=== PATIENT | male | born 1950 | race Caucasian/White ===

== ENCOUNTER 2016-08-01 15:18 | Observation (INO) | payer OTHER ==
[~2016-08-01] VITALS: Ht 195.6 cm; Wt 96.2 kg
[~2016-08-01 15:18] MED LIST: COUMADIN10 M1 PO; COUMADIN6 M1 PO; MULTI-DAY VITA1 EACH PO; VITAMIN B-12500 MC2 PO; VITAMIN D31000 UNI2 PO
[2016-08-01 16:08] LABS: ABSOLUTE BASOPHIL COUNT 0 /CUMM (0.0-0.2); ABSOLUTE EOSINOPHIL COUNT 0 /CUMM (0.0-0.7); ABSOLUTE GRANULOCYTE CT 6.9 /CUMM (1.4-6.5); ABSOLUTE LYMPH COUNT 2.2 /CUMM (1.2-3.4); ABSOLUTE MONOCYTE COUNT 0.7 /CUMM (0.10-0.60); BASOPHIL % 0.5 % (0.0-2.0); EOSINOPHIL % 0.3 % (0-5); GRANULOCYTE % 70.2 % (42.2-75.2); HEMATOCRIT 37.8 % (42-52); MEAN CORPUSCULAR HGB 29.9 PG (27.0-31.0); MEAN CORPUSCULAR HGB CONC 32.7 G/DL (33.0-37.0); MEAN CORPUSCULAR VOLUME 91.4 FL (80.0-94.0); MEAN PLATELET VOLUME 8.8 FL (7.4-10.4); PLATELET COUNT 255 /CUMM (130-400); RBC DISTRIBUTION WIDTH 15.1 % (11.5-14.5); RED BLOOD CELL CT 4.14 /CUMM (4.70-6.10); WHITE BLOOD CELL COUNT 9.8 /CUMM (4.8-10.8)
--- NOTE | 2016-08-01 16:09 | NUR ---
RECEIVED 65 YO MALE C/O MID ABDOMINAL AREA PAIN RADIATING TO BOTH SIDES, STARTED 8 AM TODAY. NO NAUSEA/VOMITING. SMALL BOWEL MOVEMENT NOTED THIS AM. PT WAS HERE 04/04 FOR SAME.
--- NOTE | 2016-08-01 16:09 | NUR ---
PT HAD BARIATRIC SURGURY 2013. LOST 200 LBS SINCE.
--- NOTE | 2016-08-01 16:27 | NUR ---
PT AMBULATORY TO ROOM 17, CHANGING INTO HOSPITAL GOWN. PT REPORTS PAIN BEGAN THIS MORNING "JUST LIKE LAST TIME," HAD SM LOOSE BM WITH TEMPORARY RELIEF, THEN PAIN CAME BACK. DENIES N/V, NO BLOOD IN STOOL. NO OTHER SYMPTOMS, "JUST PAIN." REPORTS EXACTLY THE SAME SYMPTOMS PRIOR HOSPITAL ADMISSION A FEW MONTHS AGO (PT REPORTS ADMITTED WITH ?INTERNAL HERNIA S/P BARIATRIC SURGERY, STATES RESOLVED "ON IT'S OWN, THEY JUST KEPT ME FROM EATING AND GAVE ME PAIN MEDS" DENIES ANY SURGICAL INTERVENTION.) ARSENIO VILLAGRAN AT BEDSIDE FOR EVAL
[2016-08-01] MEDS ORDERED: COUMADIN5 M2 PO (16:31)
[2016-08-01] MEDS ORDERED: COUMADIN10 M1 PO (16:32)
--- NOTE | 2016-08-01 16:40 | ED GI/GU/ABDOMINAL COMPLAINT ---
History of Present Illness General Chief Complaint: Abdominal Pain/Flank Pain Stated Complaint: ABD PAIN Source: patient, old records Exam Limitations: no limitations Vital Signs & Intake/Output Vital Signs & Intake/Output Vital Signs Date Time Temp Pulse Resp B/P Pulse O2 O2 Flow FiO2 Ox Delivery Rate 08/02 2043 Room Air 08/01 2017 97.4 68 20 140/79 98 Room Air 08/01 1821 98.0 59 18 140/97 100 Room Air 08/01 1632 99 08/01 1627 82 20 156/80 99 Room Air 08/01 1611 97.4 64 18 176/100 98 Room Air ED Intake and Output 08/02 0000 08/01 1200 Intake Total 1000 Output Total 200 Balance 800 Intake, IV 1000 Output, Urine 200 Patient 212 lb Weight Allergies Coded Allergies: NO KNOWN ALLERGIES (03/18/16) Reconcile Medications Cyanocobalamin (Vitamin B-12) (Vitamin B-12) (Unknown Strength) TABLET 1 TAB PO DAILY SUPPLEMENT (Reported) Multivitamin (Multi-Day Vitamins) 1 EACH TABLET 1 TAB PO DAILY SUPPLEMENT ( Reported) Warfarin Sodium (Coumadin) 5 MG TABLET 1 TAB PO QSUN BLOOD THINNER (Reported) Warfarin Sodium (Coumadin) 10 MG TABLET 1 TAB PO AD BLOOD THINNER (Reported) Triage Note: RECEIVED 65 YO MALE C/O MID ABDOMINAL AREA PAIN RADIATING TO BOTH SIDES, STARTED 8 AM TODAY. NO NAUSEA/VOMITING. SMALL BOWEL MOVEMENT NOTED THIS AM. PT WAS HERE 04/04 FOR SAME. Triage Nurses Notes Reviewed? yes HPI: PATIENT IS A 65-YEAR-OLD MALE PRESENTS COMPLAINING OF DIFFUSE ABDOMINAL PAIN. pAIN ONSET THIS MORNING. Pain sudden onset while patient was at rest. Pain is a sharp pain currently severe. Patient reports he had a small bowel movement this morning which provided moderate temporary improvement then the pain returned. Intermittent associated diaphoresis. Patient denies fevers, chills, vomiting, diarrhea. (TYSHAWN CESAR,BRIAN) Past History Travel History Traveled to [place] past 21 day No Medical History Any Pertinent Medical History? see below for history Neurological: NONE EENT: NONE Cardiovascular: NONE Respiratory: NONE Gastrointestinal: NONE Hepatic: cholelithiasis Renal: NONE Musculoskeletal: disk herniation Psychiatric: NONE Endocrine: NONE Blood Disorders: DVT Cancer(s): NONE HISTOLOGIC AIDE/Reproductive: NONE History of MRSA: No History of VRE: No History of CDIFF: No Pneumonia Vaccine: 04/20/15 Influenza Vaccine: 12/20/15 Surgical History Surgical History: cholecystectomy, gastric bypass Psychosocial History What is your primary language Divehi Tobacco Use: Current Daily Use Daily Tobacco Use Amount/Type: => 5 Cigarettes daily Family History Hx Contributory? No (BRIAN DUARTE) Review of Systems Review of Systems Constitutional: Reports: diaphoresis. Denies: chills, fever. EENTM: Reports: no symptoms. Respiratory: Denies: cough, short of breath. Cardiovascular: Denies: chest pain. GI: Reports: see HPI. Genitourinary: Denies: dysuria, frequency, hematuria. Musculoskeletal: Reports: no symptoms. Skin: Reports: no symptoms. Neurological/Psychological: Reports: no symptoms. Hematologic/Endocrine: Reports: no symptoms. Immunologic/Allergic: Reports: no symptoms. (BRIAN DUARTE) Physical Exam Physical Exam General Appearance: alert, awake Head: atraumatic, normal appearance Eyes: Bilateral: normal appearance, PERRL, EOMI. Ears, Nose, Throat, Mouth: hearing grossly normal, moist mucous membrane Neck: normal inspection, supple, full range of motion Respiratory: normal breath sounds, chest non-tender, no respiratory distress, lungs clear Cardiovascular: regular rate/rhythm (NO APPRECIABLE MURMUR) Peripheral Pulses: 2+ dorsalis pedis (R), 2+ dorsalis pedis (L) Gastrointestinal: normal bowel sounds, soft, DIFFUSE TENDERNESS WITH MILD GUARDING Back: normal inspection, normal range of motion Extremities: normal range of motion, TRACE BILATERAL LOWER EXTREMITY EDEMA Neurologic/Psych: no motor/sensory deficits, awake, alert, oriented x 3, normal gait, normal mood/affect Skin: warm/dry Core Measures ACS in differential dx? No Severe Sepsis Present: No Septic Shock Present: No (RBIAN DUARTE) Progress Differential Diagnosis: sbo, internal hernia, mesenteric ischemia, bowel perforation Plan of Care: Orders Procedure Date/time Status Clear Liquid Diet 08/02 B Active PROTHROMBIN TIME 08/02 0600 Active MAGNESIUM 08/02 0600 Active CBC WITHOUT DIFFERENTIAL 08/02 0600 Active BASIC ELECTROLYTES PLUS BUN&CR 08/02 0600 Active Patient Data 08/02 0005 Active PROTHROMBIN TIME 08/02 0005 Active Code Status 08/02 0005 Active Vital Signs 08/02 UNK Active Intake & Output 08/02 UNK Active BLOOD PRODUCT PICKUP 08/01 2310 Active FRESH FROZEN PLASMA 08/02 2147 Active BLOOD PRODUCT PICKUP 08/01 2146 Active BLOOD PRODUCT PICKUP 08/01 2124 Active BLOOD PRODUCT PICKUP 08/01 2114 Active FingerStick- Glucose 08/[address] in observation 08/01 2032 Active BLOOD PRODUCT PICKUP 08/02 2019 Active FRESH FROZEN PLASMA 08/01 2017 Active LACTIC ACID 08/01 1938 Complete PROTHROMBIN TIME 08/01 1643 Complete URINALYSIS 08/01 1638 Complete LACTIC ACID 08/01 1638 Complete LIPASE 08/01 152 Complete COMPREHENSIVE METABOLIC PANEL 08/01 152 Complete CBC WITHOUT DIFFERENTIAL 08/01 152 Complete AMYLASE 08/01 1522 Complete TYPE & SCREEN (NOT X-MATCH) 08/01 152 Complete EKG 08/01 1519 Active Laboratory Tests 08/02/16 0027: PT Pending, INR Pending 08/01/162019: Lactic Acid 0.7 08/01/16 1837: Urine Color YEL, Urine Clarity CLEAR, Urine pH 5.5, Ur Specific [place] >= 1.030 , Urine Protein TRACE H, Urine Ketones TRACE H, Urine Nitrite NEG, Urine Bilirubin NEG, Urine Urobilinogen 0.2, Ur Leukocyte Esterase NEG, Ur Microscopic SEDIMENT EXAMINED, Urine WBC RARE, Urine Crystals 1+ CA OX H, Urine Bacteria FEW H, Hyaline Casts 3-5 H, Urine Mucus FEW, Urine Hemoglobin NEG, Urine Glucose NEG 08/01/16 1638: Lactic Acid 0.8, PT 25.1 H, INR 2.41 H 08/01/16 1535: Anion Gap 12, Estimated GFR > 60, BUN/Creatinine Ratio 16.7, Glucose 190 H, Calcium 9.1, Total Bilirubin 0.6, AST 28, ALT 43, Alkaline Phosphatase 78, Total Protein 6.6, Albumin 3.8, Globulin 2.8, Albumin/Globulin Ratio 1.4, Amylase 47, Lipase 102, CBC w Diff NO MAN DIFF REQ, RBC 4.14 L, MCV 91.4, MCH 29.9, RDW 15.1 H, MPV 8.8, Gran % 70.2, Lymphocytes % 22.3, Monocytes % 6.7, Eosinophils % 0.3, Basophils % 0.5, Absolute Granulocytes 6.9 H, Absolute Lymphocytes 2.2, Absolute Monocytes 0.7 H, Absolute Eosinophils 0, Absolute Basophils 0, PUBS MCHC 32.7 L 08/01/2016 6:24:20 PM: Pain improved from 10/10 to 6-7/10. Results of labs discussed with patient. Awaiting CT scan. Discussed with Dr. Villegas 08/01/2016 8:02:22 PM: Discussed with Dr. Beckman surgical PA evaluating patient at this time. 08/01/2016 8:20:15 PM: Plan for Dr. Beckman to take patient to the OR, surgical PA ordered FFP and vitamin K (TYSHAWN CESAR,BRIAN) Diagnostic Imaging: Viewed by Me: CT Scan. Discussed w/RAD: CT Scan. Radiology Impression: PATIENT: BRIAN MCGOWAN PRESENT AGE: 65 PATIENT ACCOUNT NO: [id number] : 50 LOCATION: [facility] ORDERING PHYSICIAN: BRIAN CESAR SERVICE DATE: 08/01/16626 EXAM TYPE: CAT - CT ABD & PELVIS W ORAL & IV CO EXAMINATION: CT ABDOMEN AND PELVIS WITH CONTRAST CLINICAL INFORMATION: Diffuse abdominal pain. History of gastric bypass. Evaluate for obstruction. COMPARISON: CT abdomen and pelvis 03/18/2016. TECHNIQUE: Multidetector volumetric imaging was performed of the abdomen and pelvis before and after the IV administration of 94 mL of Optiray 320 intravenous contrast. Sagittal and coronal reformatted images were obtained on the technologist's workstation. DLP: 544 mGy-cm FINDINGS: Limited evaluation of the solid abdominal viscera secondary to phase of contrast imaging. Specifically , there is limited evaluation of the liver parenchyma. LUNG BASES: The visualized lung bases are unremarkable. LIVER, GALLBLADDER, AND BILIARY TREE: The liver is normal in size, shape, and attenuation. As noted above, there is limited evaluation of the liver parenchyma, secondary to phase of contrast imaging. No contour deforming liver lesions are identified. The gallbladder is surgically absent and there is mild intrahepatic and extrahepatic biliary ductal dilatation. There are no visible radiopaque intraductal stones. PANCREAS: Unremarkable. SPLEEN: Unremarkable. ADRENAL GLANDS: Unremarkable. KIDNEYS AND URETERS: The bilateral kidneys are normal in size and enhance symmetrically, without solid parenchymal lesions. Redemonstrated are several fluid attenuating lesions within the upper and mid poles of the bilateral kidneys, favored corresponds to simple renal cortical cysts. No renal or ureteral stones are identified and there is no hydroureteronephrosis of either kidney or renal collecting system. BLADDER: The urinary bladder is decompressed. GASTROINTESTINAL TRACT: Evaluation of the gastrointestinal system is again notable for postsurgical changes related to prior Radha-en-Y gastric bypass surgery. The gastrojejunal and jejunojejunal anastomoses appear to be grossly patent. Of note, there is limited evaluation of the gastrointestinal system as well as the mesentery secondary to phase of contrast imaging. The imaged abdominal and pelvic bowel loops appear to be normal in caliber, without findings indicative of small bowel obstruction or ileus. There is questionable circumferential thickening of the imaged loops of small and large bowel, which is entirely nonspecific and may be secondary to mucosal edema given diffuse mesenteric edema. There is persistent diffuse mesenteric edema, which may be secondary to underlying obstruction of the superior mesenteric artery. Specifically, there is complete occlusion of the mid segment of the superior mesenteric artery, approximately 5.5 cm from its origin. In this region of occlusion, there is focal twisting of the mesentery within this region and absent flow within the vessel spanning approximately 1.2 cm (series 602, image 44). Flow within the vessel appears to be reconstituted distally by proximal branches of the superior mesenteric artery. Given the patient's history of prior abdominal surgery, cannot exclude a focal intra-abdominal adhesion or internal hernia as a cause of occlusion of the superior mesenteric artery. Alternatively, occlusion of the superior mesenteric artery may be secondary to underlying intraluminal thrombus. As noted above, there is extensive mesenteric edema, which as noted above may be secondary to obstruction of the superior mesenteric artery. There appears to be some venous outflow from the mesentery. However, evaluation of the abdominal venous structures is significantly limited secondary to phase of contrast imaging. ABDOMINAL WALL: Small fluid and fat-containing umbilical hernia. LYMPH NODES: Limited evaluation for mesenteric and retroperitoneal adenopathy given extensive mesenteric edema. No significant deep pelvic or inguinal adenopathy. VASCULAR: As noted above, there is complete occlusion of the mid segment of the superior mesenteric artery, approximately 5.5 cm from its origin. There is associated twisting of the mesentery within this region of occlusion. Absent flow within the superior mesenteric artery spans approximately 1.2 cm. There is apparent reconstitution of flow distally from proximal branches of the superior mesenteric artery. There is limited evaluation of the abdominal venous structures given phase of contrast imaging. Contrast is identified within the IVC as well as within the bilateral renal veins. An infrarenal IVC filter is identified. There is limited evaluation for flow within the main portal vein, the right and left portal veins, the splenic vein as well as SMV, given exam limitations. The remaining imaged vessels of the abdominal aorta appear to be grossly patent and opacified by intravenous contrast. PELVIC VISCERA: The prostate gland is enlarged and is visualized measuring approximately 4.2 x 5.6 cm in AP and transverse dimensions respectively. OSSEOUS STRUCTURES: No acute osseous abnormality. Moderate multilevel degenerative changes of the imaged thoracolumbar spine without visible acute vertebral compression deformity or subluxation. IMPRESSION: 1. Diffuse mesenteric edema, not significantly changed relative to the prior examination. Mesenteric edema may be secondary to underlying occlusion of the superior mesenteric artery. Specifically, there is complete occlusion of the mid segment of the superior mesenteric artery, approximately 5.5 cm from its origin. This segment of occlusion spans approximately 1.2 cm within the central abdomen. Flow within the vessel appears to be reconstituted distally by proximal branches of the superior mesenteric artery. In the region of occlusion, there is focal twisting of the mesentery. This may account for occlusion of the vessel although intraluminal thrombus cannot be entirely excluded. Given the patient's history of prior abdominal surgery an internal hernia or intra-abdominal adhesion should also be considered. Recommend surgical consultation. Also recommend correlation with CTA of the abdomen with 3-D reconstruction. 2. Postsurgical changes related to prior Radha-en-Y gastric bypass procedure. Normal caliber of abdominal and pelvic bowel loops, without findings indicative of small bowel obstruction or ileus. Given the aforementioned findings and the patient's presenting clinical symptoms consideration should be given to chronic underlying mesenteric ischemia. No bowel wall pneumatosis or portal venous air is identified and there are no extraluminal foci of air to suggest perforation. 3. Limited evaluation of the abdominal venous structures secondary to phase of contrast imaging. This critical result was discussed with Dr. Brian patten at 7:35 PM on and it was ascertained that the content and urgency of the report was understood at the time of direct communication. DICTATED BY: SIVA MERCEDES MD DATE/TIME DICTATED:08/01/161926 DOOR PULLER:SONDRA DATE/TIME TRANSCRIBED:08/01/161926 CONFIDENTIAL, DO NOT COPY WITHOUT APPROPRIATE AUTHORIZATION. <Electronically signed in Other Vendor System> SIGNED BY: SIVA MERCEDES MD 08/01/162000 Initial ED EKG: sinus rhythm and rate controlled with PVCs present, nonspecific intraventricular conduction delay similar to previous EKG, no acute ST/T-wave abnormalities compared to previous EKG Prior EKG: unchanged (BRIAN DUARTE) Departure Departure Time of Disposition: 2109 Disposition: STILL A PATIENT Condition: Guarded Clinical Impression Primary Impression: Occlusion of superior mesenteric artery Secondary Impressions: Obstructed internal hernia Referrals: TAO MARSHALL,ISAIAH Osei (PCP/Family) Departure Forms: Customer Survey General Discharge Information OR/GI Note Spoke With: NICOLA BECKMAN DO ED Treatment Decision: BRIAN MCGOWAN requires urgent operative management or an emergent procedure that cannot be performed in the Emergency Room setting. Transport To: [facility] (BRIAN DUARTE) PA/DRYWALL BOARDHANGER Co-Sign Statement Statement: ED Attending supervision documentation- [] I saw and evaluated the patient. I have also reviewed all the pertinent lab results and diagnostic results. I agree with the findings and the plan of care as documented in the PA's/DRYWALL BOARDHANGER's documentation. [x] I have reviewed the ED Record and agree with the PA's/DRYWALL BOARDHANGER's documentation. [] Additions or exceptions (if any) to the PAs/DRYWALL BOARDHANGER's note and plan are summarized below: [] (ANANDA MARSHALL,BRE Shelton) Critical Care Note Critical Care Note Critical Care Time: 30-74 min (BRIAN DUARTE)
[2016-08-01 17:10] LABS: PT 25.1 SEC (9.4-12.5)
--- NOTE | 2016-08-01 17:41 | NUR ---
PT APPEARS VERY COMFORTABLE AFTER MEDS, LYING ON STRETCHER WATCHING TV AND ASKING FOR ICE CHIPS. CT CALLED RE:ORAL CONTRAST, WILL BE BRINGING IT TO BEDSIDE SHORTLY. PT STILL UNABLE TO PROVIDE URINE SAMPLE.
--- NOTE | 2016-08-01 18:22 | NUR ---
PT DRINKING ORAL CONTRAST NOW. RE-EVAL BY ARSENIO.
--- NOTE | 2016-08-01 18:50 | NUR ---
URINE TRIO SENT. PT TO CT ON STRETCHER.
--- NOTE | 2016-08-01 19:03 | NUR ---
RETURNS FROM CT, C/O MORE PAIN THEN IMMED ASKING FOR TV VOLUME TO BE INCREASED. ADDL 4MG MORPHINE GIVEN. AWAITING CT RESULTS.
--- NOTE | 2016-08-01 19:14 | NUR ---
AFTER RECIEVING MORPHINE PT BECAME PROGRESSIVELY MORE AGITATED, ROCKING BACK AND FORTH ON STRETCHER, SHAKING SIDE RAILS AND CALLING OUT. C/O INCREASING PAIN. PA NOTIFIED AND PT MEDICATED PER EMAR NOW. AWAITING CT RESULTS.
--- NOTE | 2016-08-01 19:49 | NUR ---
PT SLEEPING ON STRETCHER AFTER MEDS. AWAITING DISPO.
--- NOTE | 2016-08-01 20:01 | CT SCAN REPORT ---
EXAMINATION: CT ABDOMEN AND PELVIS WITH CONTRAST CLINICAL INFORMATION: Diffuse abdominal pain. History of gastric bypass. Evaluate for obstruction. COMPARISON: CT abdomen and pelvis 03/18/2016. TECHNIQUE: Multidetector volumetric imaging was performed of the abdomen and pelvis before and after the IV administration of 94 mL of Optiray 320 intravenous contrast. Sagittal and coronal reformatted images were obtained on the technologist's workstation. DLP: 544 mGy-cm FINDINGS: Limited evaluation of the solid abdominal viscera secondary to phase of contrast imaging. Specifically, there is limited evaluation of the liver parenchyma. LUNG BASES: The visualized lung bases are unremarkable. LIVER, GALLBLADDER, AND BILIARY TREE: The liver is normal in size, shape, and attenuation. As noted above, there is limited evaluation of the liver parenchyma, secondary to phase of contrast imaging. No contour deforming liver lesions are identified. The gallbladder is surgically absent and there is mild intrahepatic and extrahepatic biliary ductal dilatation. There are no visible radiopaque intraductal stones. PANCREAS: Unremarkable. SPLEEN: Unremarkable. ADRENAL GLANDS: Unremarkable. KIDNEYS AND URETERS: The bilateral kidneys are normal in size and enhance symmetrically, without solid parenchymal lesions. Redemonstrated are several fluid attenuating lesions within the upper and mid poles of the bilateral kidneys, favored corresponds to simple renal cortical cysts. No renal or ureteral stones are identified and there is no hydroureteronephrosis of either kidney or renal collecting system. BLADDER: The urinary bladder is decompressed. GASTROINTESTINAL TRACT: Evaluation of the gastrointestinal system is again notable for postsurgical changes related to prior Radha-en-Y gastric bypass surgery. The gastrojejunal and jejunojejunal anastomoses appear to be grossly patent. Of note, there is limited evaluation of the gastrointestinal system as well as the mesentery secondary to phase of contrast imaging. The imaged abdominal and pelvic bowel loops appear to be normal in caliber, without findings indicative of small bowel obstruction or ileus. There is questionable circumferential thickening of the imaged loops of small and large bowel, which is entirely nonspecific and may be secondary to mucosal edema given diffuse mesenteric edema. There is persistent diffuse mesenteric edema, which may be secondary to underlying obstruction of the superior mesenteric artery. Specifically, there is complete occlusion of the mid segment of the superior mesenteric artery, approximately 5.5 cm from its origin. In this region of occlusion, there is focal twisting of the mesentery within this region and absent flow within the vessel spanning approximately 1.2 cm (series 602, image 44). Flow within the vessel appears to be reconstituted distally by proximal branches of the superior mesenteric artery. Given the patient's history of prior abdominal surgery, cannot exclude a focal intra-abdominal adhesion or internal hernia as a cause of occlusion of the superior mesenteric artery. Alternatively, occlusion of the superior mesenteric artery may be secondary to underlying intraluminal thrombus. As noted above, there is extensive mesenteric edema, which as noted above may be secondary to obstruction of the superior mesenteric artery. There appears to be some venous outflow from the mesentery. However, evaluation of the abdominal venous structures is significantly limited secondary to phase of contrast imaging. ABDOMINAL WALL: Small fluid and fat-containing umbilical hernia. LYMPH NODES: Limited evaluation for mesenteric and retroperitoneal adenopathy given extensive mesenteric edema. No significant deep pelvic or inguinal adenopathy. VASCULAR: As noted above, there is complete occlusion of the mid segment of the superior mesenteric artery, approximately 5.5 cm from its origin. There is associated twisting of the mesentery within this region of occlusion. Absent flow within the superior mesenteric artery spans approximately 1.2 cm. There is apparent reconstitution of flow distally from proximal branches of the superior mesenteric artery. There is limited evaluation of the abdominal venous structures given phase of contrast imaging. Contrast is identified within the IVC as well as within the bilateral renal veins. An infrarenal IVC filter is identified. There is limited evaluation for flow within the main portal vein, the right and left portal veins, the splenic vein as well as SMV, given exam limitations. The remaining imaged vessels of the abdominal aorta appear to be grossly patent and opacified by intravenous contrast. PELVIC VISCERA: The prostate gland is enlarged and is visualized measuring approximately 4.2 x 5.6 cm in AP and transverse dimensions respectively. OSSEOUS STRUCTURES: No acute osseous abnormality. Moderate multilevel degenerative changes of the imaged thoracolumbar spine without visible acute vertebral compression deformity or subluxation. IMPRESSION: 1. Diffuse mesenteric edema, not significantly changed relative to the prior examination. Mesenteric edema may be secondary to underlying occlusion of the superior mesenteric artery. Specifically, there is complete occlusion of the mid segment of the superior mesenteric artery, approximately 5.5 cm from its origin. This segment of occlusion spans approximately 1.2 cm within the central abdomen. Flow within the vessel appears to be reconstituted distally by proximal branches of the superior mesenteric artery. In the region of occlusion, there is focal twisting of the mesentery. This may account for occlusion of the vessel although intraluminal thrombus cannot be entirely excluded. Given the patient's history of prior abdominal surgery an internal hernia or intra-abdominal adhesion should also be considered. Recommend surgical consultation. Also recommend correlation with CTA of the abdomen with 3-D reconstruction. 2. Postsurgical changes related to prior Radha-en-Y gastric bypass procedure. Normal caliber of abdominal and pelvic bowel loops, without findings indicative of small bowel obstruction or ileus. Given the aforementioned findings and the patient's presenting clinical symptoms consideration should be given to chronic underlying mesenteric ischemia. No bowel wall pneumatosis or portal venous air is identified and there are no extraluminal foci of air to suggest perforation. 3. Limited evaluation of the abdominal venous structures secondary to phase of contrast imaging. This critical result was discussed with Dr. Brian patten at 7:35 PM on 08/01/2016 and it was ascertained that the content and urgency of the report was understood at the time of direct communication.
--- NOTE | 2016-08-01 20:13 | NUR ---
SURGICAL PA AT BEDSIDE. PT TOLD SURGICAL PA HE IS CURRENTLY RECIEVING TX FOR C-DIFF, DX 07/20/16. PT REPORTS LOOSE STOOL THIS AM. PLACED ON ENTERIC CONTACT PRECAUTIONS.
--- NOTE | 2016-08-01 20:23 | NUR ---
LACTIC ACID SENT
--- NOTE | 2016-08-01 20:59 | History & Physical Pre-Op ---
LAMONT POLO 08/01/16 2030: General Information and HPI MD Statement: I have seen and personally examined LUCIO MCGOWAN and documented this H&P. The patient is a 65 year old M who presented with a patient stated chief complaint of abdominal pain. 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 Patient states that he woke up feeling a little "weak." He breakfast without difficulty and then started to experience abdominal discomfort, which she describes as "pressure," about 15 minutes later. The abdominal pain was progressively worsening, eventually to 8-8.5 out of 10. He had a bowel movement , which provided some relief for about 30 minutes, but then the symptoms subsequently returned. The pain has since not resolved. He admits to feeling a little lightheaded and has the hiccups. This episode is very similar to previous pain which he experienced prior to his last admission in March 2016. Patient was treated conservatively and diet was slowly advanced at that time. He reports a four-month history of diarrhea since then, which was eventually attributed to C. difficile colitis. He completed about a 2 month course of antibiotics 2 days ago and reports feeling a little constipated since then. Otherwise denies fever, chills, sweating, headache, chest pain, shortness of breath, palpitations, cough, nausea, vomiting, hematochezia, oliguria. Last ate [employer] around 2pm and ingested oral contrast prior to his CT scan before 5pm. CT scan performed in the ED reveals some concern for internal hernia with associated SMA occlusion. Allergies/Medications Allergies: Coded Allergies: NO KNOWN ALLERGIES (03/18/16) Home Med list Cyanocobalamin (Vitamin B-12) (Vitamin B-12) (Unknown Strength) TABLET 1 TAB PO DAILY SUPPLEMENT (Reported) Multivitamin (Multi-Day Vitamins) 1 EACH TABLET 1 TAB PO DAILY SUPPLEMENT ( Reported) Warfarin Sodium (Coumadin) 5 MG TABLET 1 TAB PO QSUN BLOOD THINNER (Reported) Warfarin Sodium (Coumadin) 10 MG TABLET 1 TAB PO AD BLOOD THINNER (Reported) Past History Medical History Neurological: NONE EENT: NONE Cardiovascular: NONE Respiratory: NONE Gastrointestinal: NONE Hepatic: cholelithiasis Renal: NONE Musculoskeletal: disk herniation Psychiatric: NONE Endocrine: NONE Blood Disorders: DVT, PE Cancer(s): NONE FORECAST ANALYST/Reproductive: NONE History of MRSA: No History of VRE: No History of CDIFF: No Pneumonia Vaccine: 04/20/15 Influenza Vaccine: 12/20/15 Surgical History Pertinent Surgical History: cholecystectomy, gastric bypass 2013, IVC Filter Past Family/Social History Psychosocial History Where Do You Live? Home Who Do You Live With? 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 difficile colitis, followed by a recent episodes of constipation over the past couple of days. Otherwise negative for fever, chills, sweating, headache, chest pain, shortness of breath, palpitations, cough, nausea, vomiting, hematochezia, oliguria. Last colonoscopy was done on 05/07/2016 and it revealed right-sided diverticula Exam & Diagnostic Data Last 24 Hrs of Vital Signs/I&O Vital Signs Date Time Temp Pulse Resp B/P Pulse O2 O2 Flow FiO2 Ox Delivery Rate 08/01 2017 97.4 68 20 140/79 98 Room Air 08/01 1821 98.0 59 18 140/97 100 Room Air 08/01 1632 99 08/01 1627 82 20 156/80 99 Room Air 08/01 1611 97.4 64 18 176/100 98 Room Air Physical Exam: Gen.: Patient is awake and alert. No acute distress. Cardiac: Regular rate and rhythm. Pulmonary: Lungs are clear to auscultation bilaterally. No wheezes, rales, rhonchi or appreciated. Abdomen: Soft and essentially nondistended. There is scattered tenderness throughout, but most notably in the epigastric region. Positive rebound tenderness and mild guarding. There is some excess abdominal skin noted in the lower abdomen. Normoactive bowel sounds were heard. Extremities: Patient has bilateral ankle edema, right greater than left. He also has a superficial eschar in the anterior distal right bermudez, which is surrounded by erythema. (Patient states that he banged his leg.) Feet are warm. No calf tenderness is appreciated. Last 24 Hrs of Labs/Josias: Laboratory Tests 08/01/162019: Lactic Acid Pending 08/01/16 1837: Urine Color YEL, Urine Clarity CLEAR, Urine pH 5.5, Ur Specific [place] >= 1.030 , Urine Protein TRACE H, Urine Ketones TRACE H, Urine Nitrite NEG, Urine Bilirubin NEG, Urine Urobilinogen 0.2, Ur Leukocyte Esterase NEG, Ur Microscopic SEDIMENT EXAMINED, Urine WBC RARE, Urine Crystals 1+ [place] H, Urine Bacteria FEW H, Hyaline Casts 3-5 H, Urine Mucus FEW, Urine Hemoglobin NEG, Urine Glucose NEG 08/01/16 1638: Lactic Acid 0.8, PT 25.1 H, INR 2.41 H 08/01/16 1535: Anion Gap 12, Estimated GFR > 60, BUN/Creatinine Ratio 16.7, Glucose 190 H, Calcium 9.1, Total Bilirubin 0.6, AST 28, ALT 43, Alkaline Phosphatase 78, Total Protein 6.6, Albumin 3.8, Globulin 2.8, Albumin/Globulin Ratio 1.4, Amylase 47, Lipase 102, CBC w Diff NO MAN DIFF REQ, RBC 4.14 L, MCV 91.4, MCH 29.9, RDW 15.1 H, MPV 8.8, Gran % 70.2, Lymphocytes % 22.3, Monocytes % 6.7, Eosinophils % 0.3, Basophils % 0.5, Absolute Granulocytes 6.9 H, Absolute Lymphocytes 2.2, Absolute Monocytes 0.7 H, Absolute Eosinophils 0, Absolute Basophils 0, PUBS MCHC 32.7 L Diagnostic Data Other Results CT scan of abdomen and pelvis revealed: 1. Diffuse mesenteric edema, not significantly changed relative to the prior examination. Mesenteric edema may be secondary to underlying occlusion of the superior mesenteric artery. Specifically, there is complete occlusion of the mid segment of the superior mesenteric artery, approximately 5.5 cm from its origin. This segment of occlusion spans approximately 1.2 cm within the central abdomen. Flow within the vessel appears to be reconstituted distally by proximal branches of the superior mesenteric artery. In the region of occlusion, there is focal twisting of the mesentery. This may account for occlusion of the vessel although intraluminal thrombus cannot be entirely excluded. Given the patient's history of prior abdominal surgery an internal hernia or intra-abdominal adhesion should also be considered. Recommend surgical consultation. Also recommend correlation with CTA of the abdomen with 3-D reconstruction. 2. Postsurgical changes related to prior Radha-en-Y gastric bypass procedure. Normal caliber of abdominal and pelvic bowel loops, without findings indicative of small bowel obstruction or ileus. Given the aforementioned findings and the patient's presenting clinical symptoms consideration should be given to chronic underlying mesenteric ischemia. No bowel wall pneumatosis or portal venous air is identified and there are no extraluminal foci of air to suggest perforation. 3. Limited evaluation of the abdominal venous structures secondary to phase of contrast imaging. Assessment/Plan Assessment/Plan: Patient is a 65-year-old male who is status post gastric bypass in 2013, also history of DVT/PE (on Coumadin), who presents to the ED with acute onset of abdominal pain similar to a previous episode about [address] findings are suggestive of internal hernia with associated SMA occlusion. Plan: -Patient will require urgent surgical intervention by way of exploratory laparoscopy. I spoke with him and he understands the need for this procedure. We also discussed that there is always a possibility of an open procedure, depending on what is encountered. -He is therapeutic on his Coumadin with an INR of 2.41. Vitamin K 10 mg subcutaneous has been given 1. 4 units of FFP have been requested STAT and patient has been consented for blood products. -Continue to keep him nothing by mouth. His last meal was earlier this afternoon. -He has received 2 L of IV fluids so far. -Okay to continue to control pain prior to OR. -This was discussed in detail with Dr. Beckman,this patient well and has reviewed his CT scan. He has made the above recommendations. As Ranked By This Provider Problem List: 1. Occlusion of superior mesenteric artery 2. Internal hernia NICOLA BECKMAN DO 08/02/16 0008: Attending MD Review Statement Attending Statement Attending MD Statement: examined this patient, discuss w/resident/PA/HUB CUTTER APPRENTICE, agreed w/resident/PA/HUB CUTTER APPRENTICE, discussed with family, reviewed images Attending Assessment/Plan: Patient is s/p LRYGB. Presents with acute onset abdominal requiring numerous doses of IV pain medication without improvement. CT scan shows a ? internal hernia/edmatous bowel and mesentery/a twist of the SMA. Patient was admitted ~5 months ago for similar complaints which resolved without intervention. Given the above, patient needs an urgent Dx Laparoscopy. This was discussed with patient and family.
--- NOTE | 2016-08-01 21:06 | NUR ---
PT REQUESTING PRESIDENT BE CONTACTED PRIOR TO OR. WIRE SAW OPERATOR NOTIFIED.
--- NOTE | 2016-08-01 21:09 | NUR ---
SURGICAL SCRUB PERFORMED
--- NOTE | 2016-08-01 21:38 | NUR ---
1ST UNIT FFP INFUSED WITH NO SX REACTION. SURGICAL TEAM AT BEDSIDE NOW, TO TRANSPORT PT TO OR. ALL [employer] VALUABLES SENT WITH PT'S SON WHO IS AT BEDSIDE AND GOING TO OR WAITING ROOM NOW. OR CHECKLIST COMPLETED, CHART GIVEN TO SURGICAL PA.
--- NOTE | 2016-08-02 00:08 | Operative Report ---
Operative/Inv Procedure Report Surgery Date: 08/01/16 Name of Procedure: Diagnostic Laparoscopy, Reduction and repair of internal hernia (Petersens space ), Lysis of adhesions, Repair serosal tears Pre-Operative Diagnosis: Abdominal pain, Internal Hernia, S/P LRYGB Post-Operative Diagnosis: Same Estimated Blood Loss: less than 50ml Surgeon/Graining Press Operator: NICOLA HENLEY Anesthesia: general endotracheal tube IV Fluids: 1600 crystalloid, 4u FFP Drains: None Specimens: None Complications: None Condition: Stable Operative Indication: This is a 65-year-old male that presented to the emergency room with acute onset of severe abdominal pain. Patient is status post laparoscopic Radha-en-Y gastric bypass approximately 3 years ago and was admitted 5-6 months ago with similar complaints that resolved at that time. Patient underwent a CT scan which was suspicious for an internal hernia with edematous small bowel and mesentery. Given the patient's severe pain and the history of a gastric bypass a diagnostic laparoscopy was discussed in detail to potentially identify and reduce an internal hernia. All risks including but not limited to bleeding, infection, and injury to surrounding bowel were discussed in detail. The patient understood everything and decided to proceed. Operative/Procedure Note Note: The patient was brought to the operating room and placed on the table in supine position. Venodyne stockings were placed and adequate general endotracheal anesthesia was obtained. The patient was prepped and draped in standard surgical fashion. I began the procedure by making a 2 cm transverse incision supraumbilically and slightly to the left of the midline. Then using a clear 12mm Visiport and a 10 mm 0 laparoscope the abdominal cavity was accessed. Great care was taken to go through the anterior rectus sheath, the posterior rectus sheath, and through the peritoneum. Once we entered the peritoneum the abdominal cavity was insufflated to 15 mmHg. Upon initial examination we did note congested/dilated loops of small bowel with what appeared to be a twist of the mesentery. 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 5 mm ports were placed one in the left lower quadrant and one in the suprapubic position. 2 more 5 mm ports were placed in the right upper quadrant and in the right lateral position. The cecum was identified, of note the large bowel did appear dilated. Terminal ileum was identified and the small bowel was then run proximally. As the small bowel was run it did appear as the mesentery was untwisting and great care was taken to not injure the small bowel as it appeared dilated and congested. The small bowel was run to the jejunojejunostomy and then the Radha limb was identified at the gastrojejunostomy and run to the jejunojejunostomy as well. At that point it appeared that all the bowel loops were in the appropriate position and no further twist was noted. Prior seen congested small bowel was now pink. No obvious defect was noted at the jejunojejunostomy. A moderate to large size defect was noted at the Wallace space. At that point Wallace space was closed using 2-0 silk running suture. At the completion the space was adequately closed. The small bowel was then run again from ligament of Treitz to the jejunojejunostomy. No further twist of the mesentery was noted. 2 small serosal tears were noted and were repaired using 2 -0 silk suture. Adhesions from the omentum to the anterior abdominal wall were taken down at the beginning of the procedure. At that point no further abnormalities were noted and the small bowel was lying in the appropriate position. All ports were removed under direct visualization, no bleeding was noted. The skin was closed using 4-0 Monocryl. Steri-Strips and dressings were placed. The patient was successfully extubated and transferred to the recovery room in stable condition. The patient tolerated the procedure well with no complications. Findings: Congested bowel, chylous ascites, Petersens space internal hernia, dilated large bowel CC: TAO MARSHALL,ISAIAH Osei
[2016-08-02 01:09] LABS: PT 22.3 SEC (9.4-12.5)
--- NOTE | 2016-08-02 04:53 | Admission Core Measures ---
Admission Lab Results I reviewed the following labs: Laboratory Tests 08/02 08/01 08/01 0027 2020 1837 Chemistry Lactic Acid (0.7 - 2.1 mmol/L) 0.7 Coagulation PT (9.4 - 12.5 SEC) 22.3 H INR (0.90 - 1.17) 2.14 H Urines Urine Color (YEL,AMB,STR) YEL Urine Clarity (CLEAR) CLEAR Urine pH (5.0 - 8.0) 5.5 Ur Specific [place] (1.001 - 1.035) >= 1.030 Urine Protein (NEG,<30 MG/DL) TRACE H Urine Ketones (NEG) TRACE H Urine Nitrite (NEG) NEG Urine Bilirubin (NEG) NEG Urine Urobilinogen (0.1 - 1.0 EU/dl) 0.2 Ur Leukocyte Esterase (NEG) NEG Ur Microscopic SEDIMENT EXAMINED Urine WBC (0 - 2 /HPF) RARE Urine Crystals 1+ CA OX H Urine Bacteria (NEG/NONE) FEW H Hyaline Casts (0/LPF) 3-5 H Urine Mucus (FEW,NONE) FEW Urine Hemoglobin (NEG) NEG Urine Glucose (N MG/DL) NEG 08/01 08/01 1638 1535 Chemistry Sodium (137 - 145 mmol/L) 140 Potassium (3.5 - 5.1 mmol/L) 4.3 Chloride (98 - 107 mmol/L) 102 Carbon Dioxide (22 - 30 mmol/L) 25 Anion Gap (5 - 16) 12 BUN (9 - 20 mg/dL) 10 Creatinine (0.7 - 1.2 mg/dL) 0.6 L Estimated GFR (>60 ml/min) > 60 BUN/Creatinine Ratio (7 - 25 %) 16.7 Glucose (65 - 99 mg/dL) 190 H Lactic Acid (0.7 - 2.1 mmol/L) 0.8 Calcium (8.4 - 10.2 mg/dL) 9.1 Total Bilirubin (0.2 - 1.3 mg/dL) 0.6 AST (17 - 59 U/L) 28 ALT (21 - 72 U/L) 43 Alkaline Phosphatase (< 127 U/L) 78 Total Protein (6.3 - 8.2 g/dL) 6.6 Albumin (3.5 - 5.0 g/dL) 3.8 Globulin (1.9 - 4.2 gm/dL) 2.8 Albumin/Globulin Ratio (1.1 - 2.2 %) 1.4 Amylase (30 - 110 U/L) 47 Lipase (23 - 300 U/L) 102 Coagulation PT (9.4 - 12.5 SEC) 25.1 H INR (0.90 - 1.17) 2.41 H Hematology CBC w Diff NO MAN DIFF REQ WBC (4.8 - 10.8 /CUMM) 9.8 RBC (4.70 - 6.10 /CUMM) 4.14 L Hgb (14.0 - 18.0 G/DL) 12.4 L Hct (42 - 52 %) 37.8 L MCV (80.0 - 94.0 FL) 91.4 MCH (27.0 - 31.0 PG) 29.9 RDW (11.5 - 14.5 %) 15.1 H Plt Count (130 - 400 /CUMM) 255 MPV (7.4 - 10.4 FL) 8.8 Gran % (42.2 - 75.2 %) 70.2 Lymphocytes % (20.5 - 51.1 %) 22.3 Monocytes % (1.7 - 9.3 %) 6.7 Eosinophils % (0 - 5 %) 0.3 Basophils % (0.0 - 2.0 %) 0.5 Absolute Granulocytes (1.4 - 6.5 /CUMM) 6.9 H Absolute Lymphocytes (1.2 - 3.4 /CUMM) 2.2 Absolute Monocytes (0.10 - 0.60 /CUMM) 0.7 H Absolute Eosinophils (0.0 - 0.7 /CUMM) 0 Absolute Basophils (0.0 - 0.2 /CUMM) 0 PUBS MCHC (33.0 - 37.0 G/DL) 32.7 L Admission Meds I reviewed the following Meds: Current Medications Sig/Travis Start time Last Medication Dose Stop Time Status Admin Acetaminophen 1,000 MG Q6P PRN 08/020 AC (Ofirmev) N/A 1 UNIT (No Carrier) Hydromorphone HCl 0.4 MG Q4P PRN 08/02 99 AC (Dilaudid) Hydromorphone HCl 0.6 MG Q4P PRN 08/020 AC (Dilaudid) Ondansetron HCl 4 MG Q6P PRN 04/15 0100 AC (Zofran) Pantoprazole Sodium 40 MG DAILY 08/02 1000 AC (Protonix) Acute Coronary Syndrome Inclusion Criteria ACS Diagnosis No Inpatient Core Measures LDL Reminder: If No, please order W/I first 24hr of stay Congestive Heart Failure Inclusion Criteria CHF Diagnosis No Cerebrovascular accident Inclusion Criteria CVA/TIA Diagnosis No Inpatient Core Measures Bedside Swallow Eval Reminder: If BSE failed, place ST order Antithrombotic Reminder: Order Antithrombotic Medication by end of day 2 Antithrombotic Reminder: Document Reason Antithrombotic Not ordered by end of day 2 AFIB/Flutter Reminder: If Present, add to problem list AFIB/Flutter Reminder: Order Anticoag Medication for pts with AFIB/Flutter Atherosclerosis Reminder: If Present, add to problem list LDL Reminder: If No, please order W/I first 24hr of stay PT Order Reminder: If No, please order Venous thromboembolism Inpatient Core Measures VTE Risk Factors: Acute medical illness, Previous VTE, Smoking, Surgery [facility] d/t No contraindications No VTE Pharm Prophylaxis d/t Surgical contraindication (inr is 2.0) Inclusion Criteria - Per Current guidelines, there needs to be overlap - treatment for the first 5 days of Warfarin therapy. - Parenteral Anticoagulation (IV or SC) needs to be - given along with Warfarin therapy. VTE Diagnosis No VTE Type NONE VTE Confirmed by (Test) NONE Problem List As ranked by this Provider includes Assessment & Plan 1. Internal hernia HOME MEDS Home Med List Cyanocobalamin (Vitamin B-12) (Vitamin B-12) (Unknown Strength) TABLET 1 TAB PO DAILY SUPPLEMENT (Reported) Multivitamin (Multi-Day Vitamins) 1 EACH TABLET 1 TAB PO DAILY SUPPLEMENT ( Reported) Warfarin Sodium (Coumadin) 5 MG TABLET 1 TAB PO QSUN BLOOD THINNER (Reported) Warfarin Sodium (Coumadin) 10 MG TABLET 1 TAB PO AD BLOOD THINNER (Reported)
--- NOTE | 2016-08-02 05:21 | NUR ---
RECEIVED PATIENT FROM ICU (RECOVERED POST OP). PT IS DROWSY BUT AROUSABLE, TRANSFERRED TO BED, VSS, AFEBRILE, ON 2L NC. LUNG SOUNDS CLEAR, ABDOMEN SOFT, 5 GAUZE/TEGADERMS CLEAN DRY AND INTACT. IV PATENT, IVF INFUSING, VOIDED, ALPS ARE ON, CALL THOMAS WITHIN REACH. DENIES PAIN.
[2016-08-02 05:38] VITALS: BP 124/78
--- NOTE | 2016-08-02 08:20 | PN- General Surgery ---
See Addendum Subjective Subjective: pod#1 s/p lap lysis of adhesion and correction of internal hernia comfortable, no major complaints this am denies cp, sob, no n+v has voided urine Objective Vital Signs and I&Os Vital Signs Date Time Temp Pulse Resp B/P Pulse O2 O2 Flow FiO2 Ox Delivery Rate 08/02 0538 97.1 64 18 124/78 96 Nasal 2.0L Cannula 08/02 05 96 Nasal 2.0L Cannula 08/02 2043 Room Air 08/01 2017 97.4 68 20 140/79 98 Room Air 08/01 1821 98.0 59 18 140/97 100 Room Air 08/01 1632 99 08/01 1627 82 20 156/80 99 Room Air 08/01 1611 97.4 64 18 176/100 98 Room Air Intake & Output 08/02 1600 08/02 0800 08/02 0000 08/01 1600 08/01 0800 08/01 0000 Intake Total 350 1000 Output Total 300 200 Balance 50 800 Intake, IV 250 1000 Intake, Oral 100 Output, Urine 300 200 Patient 212 lb 212 lb Weight Physical Exam: cv: rrr lungs: clear abd: soft, flat no guarding to palp drsg dry ext: warm, distal cms intact Assessment/Plan Assessment/Plan surgical stable plan f/u am labs will start hep sq when inr subtheraputic oob/ambulate start with clears this am may advance to fulls for lunch Core Measures/Miscellaneous Venous Thromboembolism VTE Risk Factors: Age > 40, Surgery VTE Contraindications: No Contraindications VTE Diagnosis: No VTE Type: NONE VTE Confirmed by (Test): NONE Beta Macarena Is Beta Macarena a Home Med? No Antibiotics Is Patient on Antibiotics? Yes
[2016-08-02 09:33] LABS: ABSOLUTE BASOPHIL COUNT 0 /CUMM (0.0-0.2); ABSOLUTE EOSINOPHIL COUNT 0 /CUMM (0.0-0.7); ABSOLUTE GRANULOCYTE CT 5.4 /CUMM (1.4-6.5); ABSOLUTE LYMPH COUNT 1.3 /CUMM (1.2-3.4); ABSOLUTE MONOCYTE COUNT 0.5 /CUMM (0.10-0.60); BASOPHIL % 0.7 % (0.0-2.0); EOSINOPHIL % 0 % (0-5); GRANULOCYTE % 75.4 % (42.2-75.2); HEMATOCRIT 34.5 % (42-52); MEAN CORPUSCULAR HGB CONC 33.2 G/DL (33.0-37.0); MEAN CORPUSCULAR VOLUME 90.6 FL (80.0-94.0); MEAN PLATELET VOLUME 8.5 FL (7.4-10.4); PLATELET COUNT 234 /CUMM (130-400); RBC DISTRIBUTION WIDTH 14.9 % (11.5-14.5); WHITE BLOOD CELL COUNT 7.2 /CUMM (4.8-10.8)
[2016-08-02 09:38] LABS: PT 19.4 SEC (9.4-12.5)
[2016-08-02 14:42] VITALS: BP 142/78
--- NOTE | 2016-08-02 17:21 | NUR ---
AT 1630 PATIENT'S BLOOD SUGAR WAS 61 ASYMPTOMATIC OJ GIVEN 1720 BLOOD SUGAR CHECKED-134 CONTINUE TO MONITOR, NEXT CHECK AT 2100
[2016-08-02 22:00] VITALS: BP 130/80
--- NOTE | 2016-08-03 05:55 | Patient Discharge Instructions ---
Discharge Instructions General Discharge Information You were seen/treated for: internal hernia You had these procedures: laparoscopic internal hernia repair Watch for these problems: temp>101.5, increased pain, increased wound drainage/redness No bath, but you may shower: Yes Other wound care: keep wounds clean and dry Special Instructions: blood draw on , 08/07/16 for f/u PT/INR Diet Recommended Diet: Regular Activity Full Activity/No Limits: No Activity Self Limited: Yes Pounds, do NOT lift more than: 10 Activity Limited to: Weight bear as tolerated Other activity limits: no strenuous activity Acute Coronary Syndrome Inclusion Criteria At DC or during hospital stay patient has or had the following: ACS DIAGNOSIS No Discharge Core Measures Meds if any: Prescribed or Continued at Discharge Meds if any: NOT Prescribed or Continued at Discharge Congestive Heart Failure Inclusion Criteria At DC or during hospital stay patient has or had the following: CHF DIAGNOSIS No Discharge Core Measures Meds if any: Prescribed or Continued at Discharge Meds if any: NOT Prescribed or Continued at Discharge Cerebrovascular accident Inclusion Criteria At DC or during hospital stay patient has or had the following: CVA/TIA Diagnosis No Discharge Core Measures Meds if any: Prescribed or Continued at Discharge Meds if any: NOT Prescribed or Continued at Discharge Venous thromboembolism Inclusion Criteria VTE Diagnosis No VTE Type NONE VTE Confirmed by (Test) NONE Discharge Core Measures - Per Current guidelines, there needs to be overlap - treatment for the first 5 days of Warfarin therapy. - If discharged on Warfarin prior to 5 days of - overlap therapy, the patient will need to be - assessed for post discharge needs including - *Post discharge parental anticoagulation - *Warfarin and/or parental anticoagulation education - *Follow up date to check INR post discharge At least 5 days overlap therapy as Inpatient No Meds if any: Prescribed or Continued at Discharge Note: Overlap Therapy is Warfarin and Anticoagulant Meds if any: NOT Prescribed or Continued at Discharge
[2016-08-03] MEDS ORDERED: PERCOCET 5-3251 EACH PO (05:57)
[2016-08-03 07:00] VITALS: BP 140/90
[2016-08-03 08:04] LABS: ABSOLUTE BASOPHIL COUNT 0.1 /CUMM (0.0-0.2); ABSOLUTE EOSINOPHIL COUNT 0.2 /CUMM (0.0-0.7); ABSOLUTE GRANULOCYTE CT 4.3 /CUMM (1.4-6.5); ABSOLUTE LYMPH COUNT 3.2 /CUMM (1.2-3.4); ABSOLUTE MONOCYTE COUNT 0.6 /CUMM (0.10-0.60); BASOPHIL % 0.7 % (0.0-2.0); EOSINOPHIL % 2.3 % (0-5); GRANULOCYTE % 51.5 % (42.2-75.2); HEMATOCRIT 35.2 % (42-52); MEAN CORPUSCULAR HGB 30.1 PG (27.0-31.0); MEAN CORPUSCULAR HGB CONC 32.8 G/DL (33.0-37.0); MEAN CORPUSCULAR VOLUME 91.8 FL (80.0-94.0); MEAN PLATELET VOLUME 8.9 FL (7.4-10.4); PLATELET COUNT 240 /CUMM (130-400); RBC DISTRIBUTION WIDTH 14.8 % (11.5-14.5); RED BLOOD CELL CT 3.83 /CUMM (4.70-6.10); WHITE BLOOD CELL COUNT 8.4 /CUMM (4.8-10.8)
--- NOTE | 2016-08-03 08:25 | PN- General Surgery ---
See Addendum Subjective Subjective: No acute events overnight. Pain is well controlled. He is tolerating a stage 2 diet. No nausea. Passing flatus and he had a BM today. Voiding well and ambulating independently. He does state that he feels a bit "weak" and would like to stay one more night. He had an episode of hypoglycemia yesterday, 60. Denies VELAZQUEZ, dizziness, lightheadedness, CP, SOB. Objective Vital Signs and I&Os Vital Signs Date Time Temp Pulse Resp B/P Pulse O2 O2 Flow FiO2 Ox Delivery Rate 08/03 0700 98.1 64 18 140/90 95 Room Air 08/02 2200 98.7 80 18 130/80 93 Room Air 08/02 1442 97.9 58 18 142/78 98 Room Air Intake & Output 08/03 1600 08/03 0800 08/03 0000 08/02 1600 08/02 0800 08/02 0000 Intake Total 820 6227 076 1442 Output Total 150 600 300 200 Balance -631 732 4938 50 800 Intake, IV 100 834 899 2199 Intake, Oral 720 900 100 Output, Urine 150 600 300 200 Patient 212 lb 212 lb Weight Physical Exam: Gen: Awake and alert. NAD. Cardiac: Regular. Pulm: CTA bilaterally Abdomen: Soft and nondistended. Dressings are c/d/i. Normal BS are heard. No significant tenderness is appreciated. Ext: No calf tenderness or calf edema noted. Results Last 48 Hours of Labs: Laboratory Tests 08/03 08/02 0615 0918 Chemistry Sodium (137 - 145 mmol/L) 140 137 Potassium (3.5 - 5.1 mmol/L) 4.6 4.3 Chloride (98 - 107 mmol/L) 102 102 Carbon Dioxide (22 - 30 mmol/L) 31 H 25 Anion Gap (5 - 16) 7 10 BUN (9 - 20 mg/dL) 9 9 Creatinine (0.7 - 1.2 mg/dL) 0.6 L 0.5 L Estimated GFR (>60 ml/min) > 60 > 60 BUN/Creatinine Ratio (7 - 25 %) 15.0 18.0 Magnesium (1.6 - 2.3 mg/dL) 1.6 1.5 L Coagulation PT (9.4 - 12.5 SEC) 13.7 H 19.4 H INR (0.90 - 1.17) 1.31 H 1.86 H Hematology CBC w Diff NO MAN DIFF REQ NO MAN DIFF REQ WBC (4.8 - 10.8 /CUMM) 8.4 7.2 RBC (4.70 - 6.10 /CUMM) 3.83 L 3.80 L Hgb (14.0 - 18.0 G/DL) 11.5 L 11.4 L Hct (42 - 52 %) 35.2 L 34.5 L MCV (80.0 - 94.0 FL) 91.8 90.6 MCH (27.0 - 31.0 PG) 30.1 30.0 RDW (11.5 - 14.5 %) 14.8 H 14.9 H Plt Count (130 - 400 /CUMM) 240 234 MPV (7.4 - 10.4 FL) 8.9 8.5 Gran % (42.2 - 75.2 %) 51.5 75.4 H Lymphocytes % (20.5 - 51.1 %) 38.1 17.6 L Monocytes % (1.7 - 9.3 %) 7.4 6.3 Eosinophils % (0 - 5 %) 2.3 0 Basophils % (0.0 - 2.0 %) 0.7 0.7 Absolute Granulocytes (1.4 - 6.5 /CUMM) 4.3 5.4 Absolute Lymphocytes (1.2 - 3.4 /CUMM) 3.2 1.3 Absolute Monocytes (0.10 - 0.60 /CUMM) 0.6 0.5 Absolute Eosinophils (0.0 - 0.7 /CUMM) 0.2 0 Absolute Basophils (0.0 - 0.2 /CUMM) 0.1 0 PUBS MCHC (33.0 - 37.0 G/DL) 32.8 L 33.2 08/02 08/01 08/01 0027 2020 1837 Chemistry Lactic Acid (0.7 - 2.1 mmol/L) 0.7 Coagulation PT (9.4 - 12.5 SEC) 22.3 H INR (0.90 - 1.17) 2.14 H Urines Urine Color (YEL,AMB,STR) YEL Urine Clarity (CLEAR) CLEAR Urine pH (5.0 - 8.0) 5.5 Ur Specific [place] (1.001 - 1.035) >= 1.030 Urine Protein (NEG,<30 MG/DL) TRACE H Urine Ketones (NEG) TRACE H Urine Nitrite (NEG) NEG Urine Bilirubin (NEG) NEG Urine Urobilinogen (0.1 - 1.0 EU/dl) 0.2 Ur Leukocyte Esterase (NEG) NEG Ur Microscopic SEDIMENT EXAMINED Urine WBC (0 - 2 /HPF) RARE Urine Crystals 1+ CA OX H Urine Bacteria (NEG/NONE) FEW H Hyaline Casts (0/LPF) 3-5 H Urine Mucus (FEW,NONE) FEW Urine Hemoglobin (NEG) NEG Urine Glucose (N MG/DL) NEG 08/01 08/01 1638 1535 Chemistry Sodium (137 - 145 mmol/L) 140 Potassium (3.5 - 5.1 mmol/L) 4.3 Chloride (98 - 107 mmol/L) 102 Carbon Dioxide (22 - 30 mmol/L) 25 Anion Gap (5 - 16) 12 BUN (9 - 20 mg/dL) 10 Creatinine (0.7 - 1.2 mg/dL) 0.6 L Estimated GFR (>60 ml/min) > 60 BUN/Creatinine Ratio (7 - 25 %) 16.7 Glucose (65 - 99 mg/dL) 190 H Lactic Acid (0.7 - 2.1 mmol/L) 0.8 Calcium (8.4 - 10.2 mg/dL) 9.1 Total Bilirubin (0.2 - 1.3 mg/dL) 0.6 AST (17 - 59 U/L) 28 ALT (21 - 72 U/L) 43 Alkaline Phosphatase (< 127 U/L) 78 Total Protein (6.3 - 8.2 g/dL) 6.6 Albumin (3.5 - 5.0 g/dL) 3.8 Globulin (1.9 - 4.2 gm/dL) 2.8 Albumin/Globulin Ratio (1.1 - 2.2 %) 1.4 Amylase (30 - 110 U/L) 47 Lipase (23 - 300 U/L) 102 Coagulation PT (9.4 - 12.5 SEC) 25.1 H INR (0.90 - 1.17) 2.41 H Hematology CBC w Diff NO MAN DIFF REQ WBC (4.8 - 10.8 /CUMM) 9.8 RBC (4.70 - 6.10 /CUMM) 4.14 L Hgb (14.0 - 18.0 G/DL) 12.4 L Hct (42 - 52 %) 37.8 L MCV (80.0 - 94.0 FL) 91.4 MCH (27.0 - 31.0 PG) 29.9 RDW (11.5 - 14.5 %) 15.1 H Plt Count (130 - 400 /CUMM) 255 MPV (7.4 - 10.4 FL) 8.8 Gran % (42.2 - 75.2 %) 70.2 Lymphocytes % (20.5 - 51.1 %) 22.3 Monocytes % (1.7 - 9.3 %) 6.7 Eosinophils % (0 - 5 %) 0.3 Basophils % (0.0 - 2.0 %) 0.5 Absolute Granulocytes (1.4 - 6.5 /CUMM) 6.9 H Absolute Lymphocytes (1.2 - 3.4 /CUMM) 2.2 Absolute Monocytes (0.10 - 0.60 /CUMM) 0.7 H Absolute Eosinophils (0.0 - 0.7 /CUMM) 0 Absolute Basophils (0.0 - 0.2 /CUMM) 0 PUBS MCHC (33.0 - 37.0 G/DL) 32.7 L Assessment/Plan Assessment/Plan Pt is a 65 yo M with a hx of gastric bypass, with subsequent 200 lb weight loss, who is now about 36 hours s/p exploratory laparoscopy and repair of internal hernia. Pt continues to improve symptomatically. Plan: -Continue stage II bariatric diet. -Replete Mg. H/H stable. -Pain control with percocet as needed. -INR remains subtherapeutic. Dose Coumadin 10 mg today to keep INR 2-3. Will give SC lovenox. -Prophylactic antibiotics complete. -Anticipate discharge to home today or tomorrow. Will discuss with attending. Core Measures/Miscellaneous Venous Thromboembolism VTE Risk Factors: Age > 40, Surgery VTE Contraindications: No Contraindications VTE Diagnosis: No VTE Type: NONE VTE Confirmed by (Test): NONE Beta Macarena Is Beta Macarena a Home Med? No Antibiotics Is Patient on Antibiotics? No
[2016-08-03 08:43] LABS: PT 13.7 SEC (9.4-12.5)
--- NOTE | 2016-08-03 12:42 | Surgical Discharge Summary ---
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 Home What is Your Primary Language? Hungarian ETOH Use: denies use Review of Systems: see h&p Hospital Course Course Attending Physician: NICOLA BECKMAN DO Primary Care Physician: ISAIAH BURGER MD Hospital Course: Pt is a 65 year old M with a past medical history significant for gastric bypass in 2013 with subsequent 200 lb weight loss, DVT/PE/IVC filter (on Coumadin), smoker, and herniated disc who presented to the ED on 08/01/16 with recurrent, progressively worsening acute abdominal pain. These symptoms were very similar to an episode he experienced in March 2016, which was treated conservatively and eventually resolved. 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 Following reversal of INR with Vitamin K and 5 units of FFP, pt was taken to the OR urgently for laparoscopic exploration. An internal hernia with some reversible small bowel compromise was identified. Hernia contents were reduced and the defect was repaired primarily ( without mesh). Vascularity of the bowel improved by the end of the case. Pt was transferred to the gen med floor in stable condition. His diet was slowly advanced, which he tolerated. He did have one episode of hypoglycemia, which may have been due to some ingestion of sugar. He was ambulating well, voiding without difficulty and had one normal BM prior to admission. Coumadin was restarted on POD #1 with a Lovenox bridge starting on POD #2 when INR decreased. He was subsequently cleared for discharge home on a Bariatric Stage III diet. Of note, pt completed treatment for C.Diff 2 days prior to admission. Since no diarrhea occurred during this admission, his stool was not re-checked. Follow up with PCP and GI (which he has scheduled) is recommended. has recommended therapeutic lovenox treatment for the next 3 days, with a follow up PT/INR on , 08/07/16. Complications: None Allergies: Coded Allergies: NO KNOWN ALLERGIES (03/18/16) Significant Procedures: 08/01/16 exploratory laparoscopy, juancarlos, reduction and repair of internal hernia Pertinent Lab Results: INR 1.18 (subtherapeutic, 08/04/16) Disposition Summary Disposition Principal Diagnosis: internal hernia Additional Diagnosis: none Discharge Disposition: home or self care Discharge Instructions General Discharge Information Code Status: Full Code Patient's Diet: regular diet Patient's Activity: No strenuous activity or heavy lifting, pushing or pulling > 5-[address] while using narcotics. Avoid working for 1-2 weeks. Follow-Up Instructions/Appts: You may shower as desired. Follow up with Dr. Beckman in 1-2 weeks. Please report any of the following signs/symptoms to MD: fever >101, nausea, constipation, excessive diarrhea, chest pain, difficulty breathing. Medications at Discharge Discharge Medications: Continue taking these medications: Cyanocobalamin (Vitamin B-12) (Vitamin B-12) (Unknown Strength) TABLET 1 Tablet ORAL DAILY Comments: PER PT Multivitamin (Multi-Day Vitamins) 1 EACH TABLET 1 Tablet ORAL DAILY Comments: PER PT Warfarin Sodium (Coumadin) 5 MG TABLET 1 Tablet ORAL EVERY THURSDAY Warfarin Sodium (Coumadin) 10 MG TABLET 1 Tablet ORAL As Directed Start taking the following new medications: Oxycodone HCl/Acetaminophen (Percocet 5-325 MG Tablet) 5 MG-325 MG TABLET 1-2 Tablet ORAL EVERY 4-6 HOURS NEEDED as needed for pain control Qty = 36 No Refills Instructions: take 1-2 tablets every 4-6 hours as needed for pain control Enoxaparin Sodium (Lovenox) 80 MG/0.8 ML SYRINGE 80 Milligram Inject into fatty tissue TWICE DAILY Qty = 6 No Refills Instructions: inject one syringe (80 mg) twice daily for 3 days, with follow up blood work (PT/INR) on at 's office Copies To: TAO MARSHALL,ISAIAH Osei
[2016-08-03 14:17] VITALS: BP 142/80
[2016-08-03 22:30] VITALS: BP 138/84
[2016-08-04 06:00] VITALS: BP 142/60; BP 95/49
--- NOTE | 2016-08-04 08:12 | PN- Bariatrics ---
Subjective Subjective: Reports tolerating diet. No nausea. Passing flatus and +bm. Pain controlled with percocet. Walking without difficulty. No dizziness. No shortness of breath. No chest pains. Voiding well. Asking for return to work note for one week from now. 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 Objective Vital Signs and I&Os Vital Signs Date Time Temp Pulse Resp B/P Pulse O2 O2 Flow FiO2 Ox Delivery Rate 08/04 06 98.4 68 18 142/60 93 Room Air 08/04 06 97.4 66 20 95/49 98 Room Air 08/03 2230 98.4 54 20 138/84 95 Room Air 08/03 1417 98.1 50 20 142/80 93 Room Air Intake & Output 08/04 1600 08/04 0800 08/04 0000 08/03 1600 08/03 0800 08/03 0000 Intake Total 200 800 720 820 Output Total 500 150 Balance -300 800 720 -150 820 Intake, IV 100 Intake, Oral 200 800 720 720 Number 2 Bowel Movements Output, Urine 500 150 Physical Exam: General - alert & oriented x 3. comfortable. no acute distress. Lungs - clear bilaterally. no w/r/r. Cardiac - s1s2. reg. Abdomen - soft. bowel sounds appreciated. dressings c/d/i. expected qiana- incisional tenderness. Extremities - warm bilaterally. trace edema b/l. Assessment/Plan Assessment/Plan This 65 year old male with hx dvt/pe/ivc filter, s/p gastric bypass and 200 lb weight loss is POD#3 s/p diagnostic laparoscopy, reduction and repair of internal hernia ([place] space), lysis of adhesions, repair serosal tears tolerating stage 3 diet. advance to reg. pain controlled with percocet f/u labs. coumadin accordingly for hx dve/pe oob/ambulating well d/c home today will d/w Core Measures/Miscellaneous Venous Thromboembolism VTE Risk Factors: Age > 40, Surgery VTE Contraindications: No Contraindications VTE Diagnosis: No VTE Type: NONE VTE Confirmed by (Test): NONE Beta Macarena Is Beta Macarena a Home Med? No Antibiotics Is Patient on Antibiotics? No
[2016-08-04 08:18] LABS: PT 12.4 SEC (9.4-12.5)
[2016-08-04] MEDS ORDERED: PERCOCET 5-3251 EACH PO (08:29)
[2016-08-04] MEDS ORDERED: LOVENOX80 MG/0.1 SC (08:59)
== END 2016-08-04 10:45 ==
LOC: ERH 15:18 → ER-OR 15:46 → ENPENDDIS 20:33 → 2NB 20:33 → CRI 20:33 → 2NB 08-02 05:12
PROVIDERS: Emergency Medicine; Physician Assistant; Physician Assistant Surgical; ADMIT Surgery
DX: K46.9 Unspecified abdominal hernia without obstruction or gangrene (principal); K66.0 Peritoneal adhesions (postprocedural) (postinfection); F17.200 Nicotine dependence, unspecified, uncomplicated; Z86.718 Personal history of other venous thrombosis and embolism; Z79.01 Long term (current) use of anticoagulants
CPT/HCPCS: 1328; 1425; 1530; 1748; 74177; 81001; 82436; 93005; 93010; 96361; 96374; 96375; 96376; J0131; J0690; J1100; J1170; J1650; J2250; J2405; J3010; J7042; P9017

== ENCOUNTER 2017-04-20 11:31 | Emergency (ER) | payer OTHER ==
[~2017-04-20] VITALS: Ht 195.6 cm; Wt 95.7 kg
[~2017-04-20 11:31] MED LIST changes: +CHOLESTYRAMINE L4 GM PO; +COUMADIN5 M2 PO; +FUROSEMIDE40 M1 PO; +LOVENOX80 MG/0.1 SC; +MAGNESIUM400 M1 PO; +METOPROLOL TART25 M1 PO; +PERCOCET 5-3251 EACH PO
--- NOTE | 2017-04-20 11:59 | ED DYSPNEA/ASTHMA COMPLAINT ---
History of Present Illness General Chief Complaint: Dyspnea (COPD, CHF, Other) Stated Complaint: SOB,DIZZINESS Source: patient, old records Exam Limitations: no limitations Vital Signs & Intake/Output Vital Signs & Intake/Output Vital Signs Date Time Temp Pulse Resp B/P B/P Pulse O2 O2 Flow FiO2 Mean Ox Delivery Rate 04/20 1137 99 16 118/85 Allergies Coded Allergies: NO KNOWN ALLERGIES (UNKNOWN 12/01/16) Reconcile Medications Cholestyramine/Aspartame (Cholestyramine Light Packet) 4 GRAM POWD.PACK 1 PAC PO DAILY Gastric BIPASS . Furosemide 40 MG TABLET 1 TAB PO DAILY diuretics . Magnesium Oxide (Magnesium) 400 MG CAPSULE 1 CAP PO BID hyppomagnesemia . Metoprolol Tartrate 25 MG TABLET 1 TAB PO BID CHF . Warfarin Sodium (Coumadin) 5 MG TABLET 1 TAB PO QSUN BLOOD THINNER (Reported) Warfarin Sodium (Coumadin) 10 MG TABLET 1 TAB PO AD BLOOD THINNER (Reported) Triage Note: TRIAGE: 66 Y/O MALE PRESENTS C/O SOB AND DIZZINESS. EXTENSIVE PMHX, PLEASE REFER TO MEDICAL HX SCREEN. UPON VITAL SIGNS IN TRIAGE, BP NORMOTENSIVE, PULSE 99. TEMP AND SPO2 UNABLE TO BE OBTAINED. EXTREMITIES COLD - PATIENT REPORTS WALKING A DISTANCE THIS MORNING TO ARRIVE TO DEPARTMENT. DISCUSSION WITH CHARGE NURSE, PT TO BE TAKEN DIRECTLY TO ROOM 19 - EKG ORDERED FROM TRIAGE SECONDARY TO CHIEF COMPLAINTS OF SHORTNESS OF BREATH AND DIZZINESS. Triage Nurses Notes Reviewed? yes HPI: Patient presents with worsening shortness of breath and dyspnea on exertion. Unknown about orthopnea as the patient sleeps on 3 pillows every night. Patient denies any chest pain or chest tightness. Patient states he feels just like it did back in December when he was admitted for pulmonary edema. In January he had cardiac catheterization but did not require any stents. Patient was started on entresto at that time. Patient walked to the emergency department for evaluation. Past History Travel History Traveled to [place] past 21 day No Medical History Any Pertinent Medical History? 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 No Review of Systems Review of Systems Constitutional: Reports: no symptoms. EENTM: Reports: no symptoms. Respiratory: Reports: see HPI, short of breath. Cardiovascular: Reports: no symptoms. GI: Reports: no symptoms. Genitourinary: Reports: no symptoms. Musculoskeletal: Reports: no symptoms. Skin: Reports: no symptoms. Neurological/Psychological: Reports: no symptoms. Hematologic/Endocrine: Reports: no symptoms. Immunologic/Allergic: Reports: no symptoms. All Other Systems: Reviewed and Negative Physical Exam Physical Exam General Appearance: well developed/nourished, alert, awake, anxious, mild distress Head: atraumatic, normal appearance Eyes: Bilateral: PERRL, EOMI. Ears, Nose, Throat: normal pharynx, normal ENT inspection, hearing grossly normal Neck: normal inspection, supple, full range of motion, NO JVD Respiratory: normal breath sounds, chest non-tender, no respiratory distress, lungs clear, NO RALES, RHONCHI OR WHEEZING, GOOD AIR ENTRY Cardiovascular: regular rate/rhythm, normal peripheral pulses Gastrointestinal: normal bowel sounds, soft, non-tender, no organomegaly Extremities: normal inspection, normal capillary refill, normal range of motion, no edema Neurologic/Psych: no motor/sensory deficits, awake, alert, oriented x 3, normal gait, normal mood/affect Skin: intact, normal color, warm/dry Lymphatic: no anterior cervical svetlana Core Measures ACS in differential dx? Yes CVA/TIA Diagnosis No Sepsis Present: No Sepsis Focused Exam Completed? No Progress Differential Diagnosis: AMI, CHF, COPD, pulmonary embolism, pneumonia, pneumothorax Plan of Care: Orders Procedure Date/time Status Telemetry/Stonemason Helper 04/20 1158 Active TROPONIN LEVEL 04/20 1158 Complete PARTIAL THROMBOPLASTIN TIME 04/20 1158 Complete PROTHROMBIN TIME 04/20 1158 Complete COMPREHENSIVE METABOLIC PANEL 04/20 1158 Complete CBC WITHOUT DIFFERENTIAL 04/20 1158 Complete B-TYPE NATRIURETIC PEP (BNP) 04/20 1158 Complete EKG 04/20 1143 Active Laboratory Tests 04/20/17 1215: Anion Gap 9, Estimated GFR > 60, BUN/Creatinine Ratio 31.7 H, Glucose 113 H, Calcium 8.9, Total Bilirubin 0.4, AST 38, ALT 40, Alkaline Phosphatase 54, Troponin I < 0.01, Rsh-K-Bftptvjgytj Pept 566 H, Total Protein 6.7, Albumin 3.9 , Globulin 2.8, Albumin/Globulin Ratio 1.4, PT 32.4 H, INR 3.12 H, APTT 45 H, CBC w Diff NO MAN DIFF REQ, RBC 4.24 L, MCV 90.3, MCH 29.7, RDW 16.6 H, MPV 7.8, Gran % 62.0, Lymphocytes % 28.9, Monocytes % 6.8, Eosinophils % 2.1, Basophils % 0.2, Absolute Granulocytes 4.6, Absolute Lymphocytes 2.1, Absolute Monocytes 0.5, Absolute Eosinophils 0.2, Absolute Basophils 0, PUBS MCHC 32.9 L Diagnostic Imaging: Viewed by Me: Radiology Read. Discussed w/RAD: Radiology Read. CXR Impression: PATIENT: LUCIO MCGOWAN PRESENT AGE: 66 PATIENT ACCOUNT NO: [id number] : 50 LOCATION: [facility] ORDERING PHYSICIAN: Harvey Parmar MD SERVICE DATE: 04/20/17 EXAM TYPE: RAD - XRY-PORTABLE CHEST XRAY EXAMINATION: XR PORTABLE CHEST CLINICAL INFORMATION: Shortness of breath and dyspnea on exertion. COMPARISON: Prior chest radiographs , most recently 11/28/2016. TECHNIQUE: Portable frontal view of the chest was obtained. FINDINGS: The heart, great vessels, pulmonary vasculature and mediastinum are stable. There is mild elevation of the left hemidiaphragm, and very mild left base atelectasis is seen. The right lung field appears clear. There is no pleural effusion or pneumothorax. No acute osseous abnormality is seen. IMPRESSION: 1. There is mild elevation of the left hemidiaphragm, and very mild left base atelectasis is seen. 2. No focal pneumonic infiltrate or congestive heart failure is seen. DICTATED BY: Manohar Palacios MD DATE/TIME DICTATED:04/20/171234 INDUSTRIAL TECH INSTRUCTOR:SONDRA DATE/TIME TRANSCRIBED:1234 CONFIDENTIAL, DO NOT COPY WITHOUT APPROPRIATE AUTHORIZATION. < Electronically signed in Other Vendor System> SIGNED BY: Manohar Palacios MD 04/20/17 1242 Initial ED EKG: SR, BAFISCULAR BLOCK, LVH, NO ISCHEMIC CHANGES Prior EKG: unchanged Comments: PT'S O2 SAT REMAINS NORMAL. Departure Departure Disposition: HOME OR SELF CARE Condition: Stable Clinical Impression Primary Impression: Dyspnea Referrals: Melvina MARSHALL,Cherrie Osei (PCP/Family) Za Gama MD Additional Instructions: FOLLOW UP WITH DR. GAMA AND DR. BURGER RETURN IF SYMPTOMS WORSEN OR FOR ANY CONCERNS Departure Forms: Customer Survey General Discharge Information Critical Care Note Critical Care Note Critical Care Time: non-applicable
[2017-04-20 12:22] LABS: ABSOLUTE BASOPHIL COUNT 0 /CUMM (0.0-0.2); ABSOLUTE EOSINOPHIL COUNT 0.2 /CUMM (0.0-0.7); ABSOLUTE GRANULOCYTE CT 4.6 /CUMM (1.4-6.5); ABSOLUTE LYMPH COUNT 2.1 /CUMM (1.2-3.4); ABSOLUTE MONOCYTE COUNT 0.5 /CUMM (0.10-0.60); BASOPHIL % 0.2 % (0.0-2.0); EOSINOPHIL % 2.1 % (0-5); HEMATOCRIT 38.3 % (42-52); MEAN CORPUSCULAR HGB 29.7 PG (27.0-31.0); MEAN CORPUSCULAR HGB CONC 32.9 G/DL (33.0-37.0); MEAN CORPUSCULAR VOLUME 90.3 FL (80.0-94.0); MEAN PLATELET VOLUME 7.8 FL (7.4-10.4); PLATELET COUNT 312 /CUMM (130-400); RBC DISTRIBUTION WIDTH 16.6 % (11.5-14.5); RED BLOOD CELL CT 4.24 /CUMM (4.70-6.10); WHITE BLOOD CELL COUNT 7.4 /CUMM (4.8-10.8)
[2017-04-20 12:32] LABS: PT 32.4 SEC (9.4-12.5); PTT 45 SEC (25-37)
--- NOTE | 2017-04-20 12:42 | RADIOLOGY REPORT ---
EXAMINATION: XR PORTABLE CHEST CLINICAL INFORMATION: Shortness of breath and dyspnea on exertion. COMPARISON: Prior chest radiographs, most recently 11/28/2016. TECHNIQUE: Portable frontal view of the chest was obtained. FINDINGS: The heart, great vessels, pulmonary vasculature and mediastinum are stable. There is mild elevation of the left hemidiaphragm, and very mild left base atelectasis is seen. The right lung field appears clear. There is no pleural effusion or pneumothorax. No acute osseous abnormality is seen. IMPRESSION: 1. There is mild elevation of the left hemidiaphragm, and very mild left base atelectasis is seen. 2. No focal pneumonic infiltrate or congestive heart failure is seen.
[2017-04-20 13:50] VITALS: BP 102/62
== END 2017-04-20 14:01 ==
LOC: ERH 11:31
PROVIDERS: Emergency Medicine
DX: R06.00 Dyspnea, unspecified (principal)
CPT/HCPCS: 71045; 93005; 93010

== ENCOUNTER 2017-06-13 09:18 | Emergency (ER) | payer OTHER ==
[~2017-06-13] VITALS: Ht 195.6 cm; Wt 98.0 kg
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
--- NOTE | 2017-06-13 11:55 | CT SCAN REPORT ---
EXAMINATION: CT HEAD WITHOUT CONTRAST CLINICAL INFORMATION: 66-year-old male presented with headache on Coumadin. COMPARISON: None TECHNIQUE: Contiguous axial imaging was performed from the skull base to vertex without intravenous administration of contrast. DLP: 641.12 mGy-cm FINDINGS: There is no evidence of acute intracranial hemorrhage or territorial infarction. No abnormal mass effect or midline shift is seen. Muse to white matter differentiation is well preserved. No extra-axial fluid collections are identified. The ventricles are normal in size. There is no abnormal attenuation within the brain parenchyma. The osseous structures and soft tissues are normal. The mastoid air cells and visualized portions of the paranasal sinuses are well aerated, except for minimal mucoperiosteal thickening of the right ethmoidal air cells IMPRESSION: No acute intracranial pathology, specifically no acute intracranial hemorrhage is seen. Minimal mucoperiosteal thickening of the right ethmoidal air cells.
[2017-06-13] MEDS ORDERED: TYLENOL WITH C1 EACH PO (12:01)
[2017-06-13 12:12] VITALS: BP 122/66
== END 2017-06-13 12:37 ==
LOC: ERH 09:18
DX: S16.1XXA Strain of muscle, fascia and tendon at neck level, initial encounter (principal); S06.0X9A Concussion with loss of consciousness of unspecified duration, initial encounter; V49.40XA Driver injured in collision with unspecified motor vehicles in traffic accident, initial encounter; Y92.9 Unspecified place or not applicable; Z79.01 Long term (current) use of anticoagulants